=== PATIENT | female | born 2005 | race Caucasian/White ===

== ENCOUNTER 2025-01-07 08:34 | Day surgery (SDC) | payer OTHER ==
[2025-01-07] MEDS ORDERED: Acetaminophen 500 MG TAB ONE (08:42)
[2025-01-07] MEDS: Acetaminophen 500 MG TAB PO SCH (08:43)
[2025-01-07] MEDS: Iron Sucrose Complex 500 MG in Sodium Chloride 0.9% 250 ML 250 ML IVPB SCH (09:19)
[2025-01-07 14:13] VITALS: BP 108/64; TEMP 97.8
== END 2025-01-07 14:21 | disposition home or self-care (01) ==
LOC: ONC/OP 08:34
PROVIDERS: ATTEND Family Medicine
DX: O99.019 Anemia complicating pregnancy, unspecified trimester (principal); Z3A.00 Weeks of gestation of pregnancy not specified
CPT/HCPCS: 96365; 96366; J1756; J7050